=== PATIENT | male | born 1960 | race Caucasian/White ===

== ENCOUNTER 2022-01-14 19:34 | Emergency (ER) | payer BC, SELFPAY ==
[2022-01-14 19:35] VITALS: BP 138/110; PULSE 92; RESP 15; TEMP 36.7; O2SAT 98; BMI 31.8
[2022-01-14] MEDS: Lidocaine 1% (20 ml mdv) 20 ML Vial INFILT (20:53)
--- NOTE | 2022-01-14 21:45 | ED.VIS.LOWEX ---
HPI History of Present Illness Chief Complaint: Bite Detail of Chief Complaint: Right posterior right and left leg popliteal fossa Informant: patient Occured/Mechanism Comment: Dog bite by neighbors dogs. Onset/Context/Timing Onset: Hours Context: Sudden Onset Timing: Intermittent Quality of Pain: Dull Location: Left and right popliteal fossa/posterior leg Current Severity: Mild Maximum Severity: Severe Worsened by: Initial bite Relieved by: Nothing Associated Symptoms Associated Symptoms: Negative for Parasthesia, Weakness or Loss of Funtion Narrative Narrative: Patient is a 61-year-old male who has no significant past medical history on no immunosuppressive meds. Has no history of rheumatic fever, heart murmur, SBE or or IV drug use. He presents after his neighbors dog bit him [place] his [place]. He denies allergies to antibiotics. He denies paresthesia, anesthesia medics. He has no other injury. His last tetanus shot was 3 days ago. Tetanus Immunization: <5 years Prior similar symptoms: No Recent Illness/Hospitalization: No PFSH PFSH Medical History Non-smoker Medical History no medical history no medical history Home Medications amoxicillin 875 mg-potassium clavulanate 125 mg tablet 1 tab PO BID #6 tabs 01/14/22 [Rx Last Taken Unknown] Allergy/AdvReac Type Severity Reaction Status Date / Time No Known Allergies Allergy Verified 01/14/22 19:39 Social History (Updated 01/14/22 @ 21:[address] Amador MD) household members: spouse Smoking Status: Never smoker substance use type: does not use ROS ROS ED Constitutional Constitutional ED: Denies chills or fever(s) Cardiovascular Cardiovascular: Denies chest pain or palpitations Respiratory/Chest Respiratory/Chest: Denies dyspnea Gastrointestinal Gastrointestinal: Denies nausea or vomiting Integumentary Reports other Details: Documented in the physical exam Neurologic Neurologic: Denies paresthesias or weakness Hematologic/Lymphatic Hematologic/Lymphatic: Denies easy bleeding or easy bruising EXAM Physical Exam Const Vital Signs: 01/14/22 19:35 Temperature 98.1 F Temperature Source Temporal Pulse Rate 92 Respiratory Rate 15 Blood Pressure 138/110 H Blood Pressure Mean 119 Pulse Ox 98 Oxygen Delivery Method Room Air Positive well nourished and well developed General Appearance ED: well developed and NAD HEENT Reports moist mucous membranes normocephalic and atraumatic Eyes PERRL Eyes Narrative: Extract muscle intact. Sclera is anicteric. Neck full ROM Resp normal respiratory effort Cardio regular rate and regular rhythm Extremity full ROM; Negative for normal to inspection Extremity Narrative: Patient has 4 puncture wounds medial aspect of the left popliteal fossa and a 2 cm laceration/tear. There is a 3 cm laceration left posterior leg/popliteal fossa and 4 superficial bite hollis. There is no evidence of foreign body. There is no evidence infection. Patient has full active range of motion of the knee. PT pulses palpable bilaterally. Psych mental status grossly normal Skin Skin Narrative: Described under the extremity portion of the physical exam Trauma: laceration and puncture MDM MDM MDM Narrative Medical decision making narrative: Patient was treated with Augmentin 875 mg twice daily. He received his first dose in the emergency room. Wounds will require repair. The 2 cm?and a 3 cm gash were repaired. The other wounds were left alone and specifically the puncture wounds left popliteal fossa. Procedures Other Procedures Procedure(s): Patient's wounds were anesthetized by local infiltration. The wounds were irrigated with 125 cc each. 2 simple interrupted sutures were placed to close the 2 cm laceration on the posterior left leg and 5 were placed right posterior leg. Discharge Plan Triage Chief Complaint: Bite ED Provider: Lane Amador Dx/Rx/DC Orders Clinical Impression: Dog bite of multiple sites of right lower extremity, Dog bite of left lower leg, Puncture wound of left leg excluding thigh Prescriptions: New amoxicillin-pot clavulanate 875-125 mg tablet 1 tab PO BID Qty: 6 0RF Primary Care Provider: Jose Carvajal Referrals: Jose Carvajal MD [Primary Care Provider] - 2 Days for wound check Activity Restrictions/Additional Instructions: 1. Keep wound clean and dry for the next 48 hours 2. Take antibiotics till gone 3. Have wound checked in 2 days. 4. There is any concern for infection return to the emergency department 5. Sutures out in 10 days 6. Clean wound with peroxide on a Q-tip then apply bacitracin ointment. You should do this 3 times a day. Disposition Disposition: Home, Self Care
[2022-01-14] MEDS: Amox/Clavulanate 875 MG Tablet PO (22:00)
[2022-01-14 22:06] VITALS: BP 126/82; PULSE 82; RESP 15; O2SAT 98
== END 2022-01-14 22:08 | disposition home or self-care (01) ==
PROVIDERS: Emergency Provider Emergency Medicine; PCP Internal Medicine; Visit Provider Emergency Medicine
DX: S81.852A Open bite, left lower leg, initial encounter (principal); S81.851A Open bite, right lower leg, initial encounter; S81.832A Puncture wound without foreign body, left lower leg, initial encounter; W54.0XXA Bitten by dog, initial encounter
CPT/HCPCS: 12002; 99282

== ENCOUNTER → 2022-10-10 | Outpatient (CLI) | payer BC, SELFPAY ==
--- NOTE | 2022-10-10 09:25 | RAD_ITS ---
STUDY: X-RAY - ESOPHAGUS (BARIUM SWALLOW) WITH FLUOROSCOPY REASON FOR EXAM: Male, 62 years old. DYSPHAGIA TECHNIQUE: 16 view(s) of the esophagus were obtained following swallowing of barium. FLUOROSCOPY TIME (if supplied): (31 seconds) minutes/seconds. 25.83 mGy COMPARISON: None. FINDINGS: There is no demonstrated esophageal foreign body. There is no demonstrated stricture or mucosal abnormality. Normal gastroesophageal junction, without a demonstrated hiatal hernia. The patient ingested a 12 mm tablet of barium without any difficulty. Normal visualized aortic arch and descending thoracic aorta. Normal visualized pulmonary parenchyma. Normal visualized osseous structures of the thorax. RAD/Esophagus Dual Contrast IMPRESSION: Normal plain film x-ray examination (barium swallow) of the esophagus. Electronically Signed: Capo White MD at 14:43 EDT ,
== END | disposition home or self-care (01) ==
PROVIDERS: PCP Internal Medicine; Referring Provider Otolaryngology; Visit Provider Otolaryngology
DX: R13.10 Dysphagia, unspecified (principal)
CPT/HCPCS: 74221